=== PATIENT | male | born 1975 | race Caucasian/White ===

== ENCOUNTER 2018-03-19 07:03 | Day surgery (SDC) | payer OTHER ==
[2018-03-17 11:47] LABS: BASOPHILS % (AUTO) 1.2 % (0.0-5.0); HEMATOCRIT 42.3 % (42-54); LYMPHOCYTES % (AUTO) 18.2 % (21.0-51.0); MEAN CORPUSCULAR HGB CONC 34.1 g/dL (32.0-36.0); MEAN CORPUSCULAR VOLUME 88.1 fL (79-99); MONOCYTES % (AUTO) 8.7 % (3.0-13.0); NEUTROPHILS % (AUTO) 68.9 % (40.0-77.0); NUCLEATED RED BLOOD CELLS 0.1 % (0.0-0.19); PLATELET COUNT (AUTO) 172 K/uL (130-400); RED CELL DISTRIBUTION WIDTH 13.5 % (11.0-15.5); WHITE BLOOD COUNT (AUTO) 4.7 K/uL (4.8-10.8)
[2018-03-17 11:51] VITALS: BP 113/70
[2018-03-17 11:54] LABS: CREATININE 1.2 mg/dL (0.5-1.5); POTASSIUM 4.2 mmol/L (3.5-5.1)
[2018-03-17] MEDS: CEFAZOLIN SODIUM 1 GM VIAL IVP SCH (12:45)
[~2018-03-19] VITALS: Ht 193 cm; Wt 100.7 kg
[2018-03-19] VITALS (13 sets, daily range): BP systolic 118–134; BP diastolic 64–88
[2018-03-19] MEDS ORDERED: BUPIVACAINE/EPI/PF 0.25% 30ML VIAL IJ ONE (07:38)
[2018-03-19] MEDS ORDERED: LACTATED RINGERS 1000ML 1,000 ML IV ONE (08:10)
[2018-03-19] MEDS ORDERED: LORA10CA PO (08:44)
[2018-03-19] MEDS ORDERED: FAMO20TA32 PO (08:45)
[2018-03-19] MEDS ORDERED: ROPIVACAINE 0.5% 5MG/ML 30ML IJ ONE (08:47)
[2018-03-19] MEDS ORDERED: PROPOFOL 10 MG/ML 20ML VIAL IV ONE (08:49)
[2018-03-19] MEDS ORDERED: LIDOCAINE PF 2% 5ML ABBOJECT ONE (08:49)
[2018-03-19] MEDS ORDERED: MIDAZOLAM HCL 1 MG/ML 2ML VIAL ONE (08:49)
[2018-03-19] MEDS ORDERED: FENTANYL CITRATE PF 50 MCG/1 ML 2ML VIAL ONE ×3 (08:50)
[2018-03-19] MEDS: CEFAZOLIN SODIUM 1 GM VIAL IVP SCH (09:00)
[2018-03-19] MEDS ORDERED: CEFAZOLIN SODIUM 1 GM VIAL ONE (09:07)
[2018-03-19] MEDS ORDERED: DEXAMETHASONE SOD PHOSPHATE 10MG/ML 1ML VIAL ONE (09:58)
[2018-03-19] MEDS ORDERED: ONDANSETRON HCL 4 MG/2 ML VIAL ONE (09:58)
[2018-03-19] MEDS ORDERED: TRANEXAMIC ACID 1000MG/10ML IV ONE (10:10)
[2018-03-19] MEDS ORDERED: MEPERIDINE-PF 25 MG/ML SYG ONE ×2 (11:52→12:06)
[2018-03-19] MEDS ORDERED: KETOROLAC TROMETHAMINE 30MG/ML ONE (11:52)
== END 2018-03-19 13:55 | disposition home or self-care (01) ==
LOC: DAH 07:03
PROVIDERS: ATTEND Orthopaedic Surgery
DX: S82.121A Displaced fracture of lateral condyle of right tibia, initial encounter for closed fracture (principal); W18.30XA Fall on same level, unspecified, initial encounter; Y93.9 Activity, unspecified; Y92.89 Other specified places as the place of occurrence of the external cause; Y99.9 Unspecified external cause status; Z98.890 Other specified postprocedural states
CPT/HCPCS: 27535; 36415; 76000; 80048; 85025; A4215; A4218; A4248; A4606; A4649 ×6; A4930; A6223; C1713 ×4; C1762; C1769; J0690; J1100; J1885; J2001; J2175 ×2; J2250; J2405; J2704; J2795; J3010 ×3; J3490; J7030; J7120 ×2

== ENCOUNTER 2019-08-05 06:00 | Day surgery (SDC) | payer OTHER ==
[2019-07-29 10:14] LABS: BASOPHILS % (AUTO) 0.9 % (0.0-5.0); HEMATOCRIT 41.8 % (42-54); LYMPHOCYTES % (AUTO) 33.2 % (21.0-51.0); MEAN CORPUSCULAR HEMOGLOBIN 30.9 pg (27.0-33.0); MEAN CORPUSCULAR HGB CONC 34.9 g/dL (32.0-36.0); MEAN CORPUSCULAR VOLUME 88.6 fL (79-99); MONOCYTES % (AUTO) 10.7 % (3.0-13.0); NEUTROPHILS % (AUTO) 50.2 % (40.0-77.0); PLATELET COUNT (AUTO) 183 K/uL (130-400); RED BLOOD CELL COUNT(AUTO) 4.72 MIL/uL (4.50-6.20); RED CELL DISTRIBUTION WIDTH 12.7 % (11.0-15.5); WHITE BLOOD COUNT (AUTO) 3.2 K/uL (4.8-10.8)
[2019-07-29 10:16] VITALS: BP 117/73
[2019-07-29 10:29] LABS: CREATININE 1.3 mg/dL (0.5-1.5); POTASSIUM 4.5 mmol/L (3.5-5.1)
[2019-08-04] MEDS: CEFAZOLIN SODIUM 1 GM VIAL IVP SCH (09:45)
[2019-08-05] VITALS (17 sets, daily range): BP systolic 116–147; BP diastolic 61–86
[~2019-08-05] VITALS: Ht 195.6 cm; Wt 100.7 kg
[~2019-08-05 06:00] MED LIST: LORA10CA PO
[2019-08-05] MEDS: LACTATED RINGERS 1000ML 1,000 ML IV SCH ×2 (07:27→08:24)
[2019-08-05] MEDS ORDERED: FENTANYL CITRATE PF 50 MCG/1 ML 2ML VIAL ONE ×2 (07:39→07:40)
[2019-08-05] MEDS ORDERED: LIDOCAINE PF 2% 5ML ABBOJECT ONE (07:39)
[2019-08-05] MEDS ORDERED: PROPOFOL 10 MG/ML 20ML VIAL IV ONE (07:39)
[2019-08-05] MEDS ORDERED: MIDAZOLAM HCL 1 MG/ML 2ML VIAL ONE (07:39)
[2019-08-05] MEDS ORDERED: BUPIVACAINE/EPI/PF 0.25% 30ML VIAL IJ ONE (07:49)
[2019-08-05] MEDS: CEFAZOLIN SODIUM 1 GM VIAL IVP SCH (07:51)
[2019-08-05] MEDS ORDERED: EPHEDRINE SULFATE 50 MG/ML AMPULE ONE (08:00)
[2019-08-05] MEDS ORDERED: DEXAMETHASONE SOD PHOSPHATE 10MG/ML 1ML VIAL ONE (08:02)
[2019-08-05] MEDS ORDERED: ONDANSETRON HCL 4 MG/2 ML VIAL ONE (08:02)
[2019-08-05] MEDS ORDERED: GLYCOPYRROLATE 1 MG/5 ML SYRINGE ONE (08:11)
[2019-08-05] MEDS ORDERED: KETOROLAC TROMETHAMINE 30MG/ML ONE ×2 (08:16→08:20)
--- NOTE | 2019-08-05 11:00 | NUR ---
PT . LEFT VIA WHEELCHAIR IN PVT CAR NO COMPLICATIONS UP D/C PT. STABLE, RX SCRIPT GIVEN TO WITH F/U APPT.D/C INSTRUCTIONS GIVEN TO .
== END 2019-08-05 11:00 | disposition home or self-care (01) ==
LOC: DAH 06:00
PROVIDERS: ATTEND Orthopaedic Surgery
DX: M25.561 Pain in right knee (principal); M23.302 Other meniscus derangements, unspecified lateral meniscus, unspecified knee; M94.261 Chondromalacia, right knee; Z79.2 Long term (current) use of antibiotics; Z79.899 Other long term (current) drug therapy; Z98.890 Other specified postprocedural states; Z72.89 Other problems related to lifestyle; Z82.49 Family history of ischemic heart disease and other diseases of the circulatory system; Z83.3 Family history of diabetes mellitus
CPT/HCPCS: 20680; 29881; 36415; 73562; 80048; 85025; A4215; A4221; A4222; A4223; A4606; A4649; A4663; A6223; A6260; J0690; J1100; J1885; J2001; J2250; J2405; J2704; J3010 ×2; J3490 ×3; J7120

== ENCOUNTER 2020-05-25 06:02 | Day surgery (SDC) | payer OTHER ==
[2020-05-22 12:26] LABS: BASOPHILS % (AUTO) 1.4 % (0.0-5.0); EOSINOPHILS % (AUTO) 3.5 % (0.0-8.0); HEMATOCRIT 42.5 % (42-54); LYMPHOCYTES % (AUTO) 37.1 % (21.0-51.0); MEAN CORPUSCULAR HEMOGLOBIN 30.8 pg (27.0-33.0); MEAN CORPUSCULAR HGB CONC 34.8 g/dL (32.0-36.0); MEAN CORPUSCULAR VOLUME 88.4 fL (79-99); MONOCYTES % (AUTO) 10.5 % (3.0-13.0); NEUTROPHILS % (AUTO) 47.2 % (40.0-77.0); PLATELET COUNT (AUTO) 161 K/uL (130-400); RED BLOOD CELL COUNT(AUTO) 4.81 MIL/uL (4.50-6.20); RED CELL DISTRIBUTION WIDTH 12.5 % (11.0-15.5); WHITE BLOOD COUNT (AUTO) 2.9 K/uL (4.8-10.8)
[2020-05-22 12:34] LABS: CREATININE 1.2 mg/dL (0.5-1.5); POTASSIUM 4.4 mmol/L (3.5-5.1)
[2020-05-22 13:08] LABS: BASOPHILS % (MANUAL) 2 % (0-2); EOSINOPHILS % (MANUAL) 2 % (1-6); LYMPHOCYTES % (MANUAL) 32 % (22-44); MONOCYTES % (MANUAL) 10 % (2-9); REACTIVE LYMPHOCYTES 12 % (0-0); SEGMENTED NEUTROPHILS % 42 % (40-70)
[2020-05-22 13:09] LABS: MAN.DIFF COMMENT-IMPRESSION MANUAL DIFFERENTIAL; PLATELET MORPHOLOGY COMMENT ADEQUATE
[2020-05-24 13:19] VITALS: BP 127/84
--- NOTE | 2020-05-24 15:29 | NUR ---
REPORT FAXED AND REPORTED CBC ABNORMALS TO JANETH ROCHA FOR DR DEL CID. SHE WILL REPORT TO MD AND CALL BACK IF ANY NEW ORDERS
[2020-05-25] VITALS (17 sets, daily range): BP systolic 117–128; BP diastolic 67–78
[~2020-05-25] VITALS: Ht 193 cm; Wt 102.1 kg
[2020-05-25] MEDS: CEFAZOLIN SODIUM 1 GM VIAL IVP SCH ×2 (06:00→08:12)
[~2020-05-25 06:02] MED LIST changes: +LACTATED RINGERS 1000ML 1,000 ML IV SCH; -LORA10CA PO
[2020-05-25] MEDS ORDERED: CLARITIN PO (06:57)
[2020-05-25] MEDS ORDERED: BUPIVACAINE/EPI/PF 0.5% 30ML VIAL IJ ONE (07:15)
[2020-05-25] MEDS ORDERED: LIDOCAINE PF 2% 5ML ABBOJECT ONE (07:27)
[2020-05-25] MEDS ORDERED: SUCCINYLCHOLINE CHLORIDE 20 MG/ML 10 ML VIAL ONE (07:27)
[2020-05-25] MEDS ORDERED: ONDANSETRON HCL 4 MG/2 ML VIAL ONE (07:28)
[2020-05-25] MEDS ORDERED: GLYCOPYRROLATE 1 MG/5 ML SYRINGE ONE (07:28)
[2020-05-25] MEDS ORDERED: DEXAMETHASONE SOD PHOSPHATE 10MG/ML 1ML VIAL ONE (07:28)
[2020-05-25] MEDS ORDERED: PROPOFOL 10 MG/ML 20ML VIAL IV ONE (07:29)
[2020-05-25] MEDS ORDERED: MIDAZOLAM HCL 1 MG/ML 2ML VIAL ONE (07:29)
[2020-05-25] MEDS ORDERED: NEOSTIGMINE 5MG/5ML SYR IV ONE (07:29)
[2020-05-25] MEDS ORDERED: FENTANYL CITRATE PF 50 MCG/1 ML 2ML VIAL ONE ×2 (07:30→08:15)
[2020-05-25] MEDS ORDERED: MEPERIDINE-PF 25 MG/ML SYG ONE ×2 (07:31→09:25)
[2020-05-25] MEDS ORDERED: ROCURONIUM 10MG/1ML SYR 10 MG/ML ML ONE (07:42)
[2020-05-25] MEDS ORDERED: EPHEDRINE SULFATE 50 MG/ML AMPULE ONE (08:05)
[2020-05-25] MEDS ORDERED: KETOROLAC TROMETHAMINE 30MG/ML ONE (08:59)
== END 2020-05-25 10:50 | disposition home or self-care (01) ==
LOC: DAH 06:02
PROVIDERS: ATTEND Orthopaedic Surgery
DX: S82.121A Displaced fracture of lateral condyle of right tibia, initial encounter for closed fracture (principal); S83.281A Other tear of lateral meniscus, current injury, right knee, initial encounter; M22.41 Chondromalacia patellae, right knee; M17.11 Unilateral primary osteoarthritis, right knee; Z88.1 Allergy status to other antibiotic agents; X58.XXXA Exposure to other specified factors, initial encounter; Y93.89 Activity, other specified; Y92.89 Other specified places as the place of occurrence of the external cause; Y99.8 Other external cause status; Z20.828 Contact with and (suspected) exposure to other viral communicable diseases
CPT/HCPCS: 29855; 29881; 36415; 73564; 80048; 85025; 93005; A4215; A4221; A4222; A4223; A4606; A4649 ×3; A4663; A6223; C1713; C9803; J0330; J0690; J1100; J1885; J2001; J2175 ×2; J2250; J2405; J2704; J2710; J3010 ×2; J3490 ×3; J7120 ×2; U0003

== ENCOUNTER 2021-01-24 06:27 | Day surgery (SDC) | payer OTHER ==
[2021-01-23 16:11] LABS: BASOPHILS % (AUTO) 1.1 % (0.0-5.0); EOSINOPHILS % (AUTO) 5.6 % (0.0-8.0); HEMATOCRIT 39.5 % (42-54); LYMPHOCYTES % (AUTO) 31.1 % (21.0-51.0); MEAN CORPUSCULAR HEMOGLOBIN 31.2 pg (27.0-33.0); MEAN CORPUSCULAR HGB CONC 35.7 g/dL (32.0-36.0); MEAN CORPUSCULAR VOLUME 87.4 fL (79-99); MONOCYTES % (AUTO) 10.7 % (3.0-13.0); NEUTROPHILS % (AUTO) 51.2 % (40.0-77.0); PLATELET COUNT (AUTO) 176 K/uL (130-400); RED BLOOD CELL COUNT(AUTO) 4.52 MIL/uL (4.50-6.20); RED CELL DISTRIBUTION WIDTH 12.5 % (11.0-15.5); WHITE BLOOD COUNT (AUTO) 3.5 K/uL (4.8-10.8)
[2021-01-23 16:17] LABS: CREATININE 1.1 mg/dL (0.5-1.5); POTASSIUM 4.1 mmol/L (3.5-5.1)
[2021-01-23 16:49] VITALS: BP 115/69
[~2021-01-24] VITALS: Ht 193 cm; Wt 103.4 kg
[2021-01-24] VITALS (16 sets, daily range): BP systolic 108–131; BP diastolic 54–81
[2021-01-24] MEDS ORDERED: CEFAZOLIN SODIUM 1 GM VIAL ONE (06:42)
[2021-01-24] MEDS ORDERED: DEXAMETHASONE SOD PHOSPHATE 10MG/ML 1ML VIAL ONE (07:30)
[2021-01-24] MEDS ORDERED: LIDOCAINE PF 100MG/5ML (2%) SYRINGE 5ML ONE (07:30)
[2021-01-24] MEDS ORDERED: PROPOFOL 10 MG/ML 20ML VIAL IV ONE (07:30)
[2021-01-24] MEDS ORDERED: ONDANSETRON 4MG INJ ONE (07:30)
[2021-01-24] MEDS ORDERED: MIDAZOLAM HCL 1 MG/ML 2ML VIAL ONE ×2 (07:30→07:31)
[2021-01-24] MEDS ORDERED: FENTANYL CITRATE PF 50 MCG/1 ML 2ML VIAL ONE (07:30)
[2021-01-24] MEDS ORDERED: MEPERIDINE-PF 25 MG/ML SYG ONE (07:31)
[2021-01-24] MEDS ORDERED: KETOROLAC 30MG VIAL (30MG/ML) ONE (07:31)
[2021-01-24] MEDS: CEFAZOLIN SODIUM 1 GM VIAL IVP ONE ×2 (07:37→07:45)
[2021-01-24] MEDS: LACTATED RINGERS 1000ML 1,000 ML IV SCH ×3 (07:37→08:35)
[2021-01-24] MEDS ORDERED: EPHEDRINE SULFATE 50 MG/ML AMPULE ONE (07:50)
== END 2021-01-24 10:03 | disposition home or self-care (01) ==
LOC: DAH 06:27
PROVIDERS: ATTEND Orthopaedic Surgery
DX: S83.281A Other tear of lateral meniscus, current injury, right knee, initial encounter (principal); Z20.822 Contact with and (suspected) exposure to COVID-19; M22.41 Chondromalacia patellae, right knee; M65.861 Other synovitis and tenosynovitis, right lower leg; M12.561 Traumatic arthropathy, right knee; M25.761 Osteophyte, right knee; E66.3 Overweight; Z98.890 Other specified postprocedural states; Z68.27 Body mass index [BMI] 27.0-27.9, adult; X58.XXXA Exposure to other specified factors, initial encounter; Y93.89 Activity, other specified; Y92.89 Other specified places as the place of occurrence of the external cause
CPT/HCPCS: 29881; 36415; 80048; 85025; 87635; A4215; A4221; A4222; A4223; A4606; A4649 ×3; A4663; A5120; A6223; C9803; J0690; J1100; J1885; J2001; J2175; J2250 ×2; J2405; J2704; J3010; J3490; J7120 ×2